=== PATIENT | male | born 1940 | race Caucasian/White ===

== ENCOUNTER 2016-08-26 06:33 | Day surgery (SDC) | payer MEDICARE, OTHER ==
[2016-08-23 08:53] LABS: HEMATOCRIT 40.8 % (42.0-54.0); MCH 30.9 pg (26.0-34.0); MCHC 31.9 g/dL (31.0-37.0); MCV 96.9 fL (80.0-100.0); MEAN PLATELET VOLUME 11.1 fL (7.4-10.4); RBC 4.21 10x6/uL (4.20-6.10); RDW 14.1 % (11.5-14.5); WBC 6.4 10x3/uL (4.8-10.8)
[2016-08-23 08:58] LABS: ANION GAP 11.5 mmol/L (8-16); CALCIUM 8.5 mg/dL (8.5-10.1); CARBON DIOXIDE 29.6 mmol/L (21.0-32.0); CREATININE - SERUM 1.7 mg/dL (0.6-1.3); POTASSIUM - SERUM 4.1 mmol/L (3.5-5.1)
--- NOTE | 2016-08-23 09:51 | HP ---
PATIENT: SATHISH MERRILL MEDICAL RECORD: [id number] ACCOUNT: [id number] LOCATION:DRE : 40 ADMISSION DATE: 08/26/16 HISTORY AND PHYSICAL EXAMINATION Preoperative History and Physical HISTORY OF PRESENT ILLNESS: Mr. Merrill is a 76-year-old male with chronic sinusitis. He is admitted for a left-sided sinus surgery. PAST MEDICAL HISTORY: Includes hypertension, coronary artery disease and prostate cancer. PAST SURGICAL HISTORY: Includes cardiac ablation in 2016, rotator cuff surgery in 2011 and prostate surgery in 2014. PHYSICAL EXAMINATION: GENERAL: He is alert and oriented. FACE: Normal and symmetric. EYES: Sclerae and conjunctivae are normal. EARS: Canals and TMs are normal. NOSE: No masses or polyps. ORAL CAVITY AND OROPHARYNX: Tongue protrudes to midline. Palate is normal. NECK: No masses or adenopathy. CHEST: Clear. CARDIOVASCULAR: Regular rate and rhythm, no murmur. DIAGNOSTIC DATA: CT, chronic left maxillary sinusitis and involvement of the ethmoid with occlusion of the left ostiomeatal complex as well. IMPRESSION: Left chronic maxillary sinusitis, refractory to medical management. PLAN: Left middle meatal antrostomy and anterior ethmoidectomy, also on the left. TRANSINT:[id number] Voice Confirmation ID: [id number] DOCUMENT ID: [id number] GABINO MOSHER MD at 0951 CC: [id number] DICTATION DATE: 08/22/16 1529 WILDLIFE AND GAME PROTECTOR: 08/22/16 1736 [id number] [place] [address]
[~2016-08-26] VITALS: Ht 185.4 cm; Wt 82.1 kg
[~2016-08-26 06:33] MED LIST: ASPIRIN EC81 MG PO; BUMEX 1 MG TAB1 MG PO; CAL/MAG/ZINC; COREG6.25 MG PO; COZAAR100 MG; ELIQUIS2.5 MG PO; FLAXSEED OIL1000 MG; FUROSEMIDE20 MG PO; HYDROCHLOROTH12.5 M1 PO; LANOXIN125 MCG PO; MULTI-DAY VITAM1 TAB; MULTI-DAY VITAM1 TAB PO; NIZORAL 2 % CRE15 GM; NORVASC5 MG PO; PACERONE200 MG PO; PLAVIX75 MG PO; POTASSIUM99 M1 PO; ZETIA10 MG PO; ZOCOR10 MG PO; ZYLOPRIM100 MG; ZYLOPRIM300 MG PO
[2016-08-26] MEDS ORDERED: LOVENOX80 MG/0.8 SC (09:24)
[2016-08-26 09:34] VITALS: BP 127/73; Ht 185.4 cm; Wt 82.1 kg
--- NOTE | 2016-08-26 17:59 | NUR ---
1445--IV DC'D, PT UP TO DRESS AT THIS TIME. DONNELL VILLASENOR 1500--DISCHARGE INSTRUCTIONS GIVEN, PT VERBALIZES UNDERSTANDING. PT OFF UNIT VIA WC. DONNELL VILLASENOR
--- NOTE | 2016-08-29 10:08 | OP ---
PATIENT NAME: SATHISH SUH MEDICAL RECORD: [id number] :40 LOCATION:DRE ADMISSION DATE: SURGEON: DONALD GILBERT MD DATE OF OPERATION: 08/26/2016 PREOPERATIVE DIAGNOSIS: left chronic maxillary sinusitis and ethmoid sinusitis. POSTOPERATIVE DIAGNOSIS: Left chronic maxillary sinusitis and ethmoid sinusitis. PROCEDURE: Left middle meatal antrostomy and left anterior ethmoidectomy. SURGEON: Donald Gilbert MD. ANESTHESIA: General orotracheal. BLOOD LOSS: Less than 2 cc. SPECIMENS: Tissue from the left middle meatus and cultures from the left maxillary sinus. PACKING: None. COMPLICATIONS: None. DISPOSITION: Recovery stable. DESCRIPTION OF PROCEDURE: He was brought to the operating room, placed in supine position, sedated and intubated by anesthesia. He had already been decongested with Afrin. Using a headlight and nasal speculum, both sides of the nose were examined. The left inferior turbinate, uncinate and base of the middle turbinate were injected with less than 1 cc of 1% lidocaine with 1:100,000 epinephrine and couple of Afrin pledgets were placed on both sides of the nose actually. Then, the patient was positioned, prepped and draped in the usual fashion for nasal surgery. The right pledgets were removed first. A 0-degree scope was used to examine the right side of the nose. The turbinates were normal. The middle meatus was opened. There was an accessory ostia that was clearly visible, there was no drainage. The maxillary sinus mucosa looked normal. Ethmoid bulla looked normal. There was no swelling or polyps. The nasal vault was normal. The nasopharynx, eustachian tube and orifices were all normal. The left side was addressed. All the Afrin pledgets were removed. A [place] elevator was used to outfracture the inferior turbinate. Middle meatus was examined. There were some thick tissue around the area of the ethmoid bulla. The middle turbinate was normal. The nasal vault and nasopharynx were normal. The middle turbinate was medialized with a freer. The uncinate was fractured anteriorly with the ball-tipped probe and a portion that was removed with the microdebrider and with a backbiter. The medius was identified with a curved olive tip suction and a backbiter was used to take down some of the tissue around there and then a large curved olive tip suction was inserted to evacuate some of the material from the maxillary sinus and cultures were taken. Some of tissue from around that area was sent for specimen as well. The ethmoid bulla was entered anteriorly with a 7-Citizen [place] suction pushing into the ethmoid bulla and then the pediatric straight and upbiting forceps were used to take down just the anterior ethmoid cavity. There was some minimal edema there, but really no purulence or sinusitis in the ethmoid sinuses. The large curved olive OPERATIVE REPORT [id number] SATHISH SUH L tip suction was used again to irrigate the maxillary sinus with 60 cc saline syringe, repeatedly irrigating it and the anterior ethmoids, a 30-degree scope was used to examine the sinus and the mucosa was relatively normal with minimal inflammation. The nasopharynx was suctioned. The right side was examined again, everything was clean. There was nearly no bleeding at that point. The patient was awakened, extubated and transported to recovery in good condition, no complications. TRANSINT:[id number] Voice Confirmation ID: [id number] DOCUMENT ID: [id number] DONALD GILBERT MD at 1008 CC: [id number] DICTATION DATE: 08/26/16 1229 BUILDING SURVEYOR: 08/26/16 190 [facility] 08/26/16 [facility] [address] [place] [address]
== END 2016-08-26 15:00 | disposition home or self-care (01) ==
LOC: D.OPS 06:33 → D.PAN 08:15 → D.OPS 10:15 → D.PAN 10:35 → D.OPS 15:00
PROVIDERS: Anesthesiology
DX: J32.0 Chronic maxillary sinusitis (principal); I10 Essential (primary) hypertension; I48.91 Unspecified atrial fibrillation; G47.30 Sleep apnea, unspecified; M19.90 Unspecified osteoarthritis, unspecified site

== ENCOUNTER 2016-08-29 01:38 | Outpatient (CLI) | payer MEDICARE, OTHER ==
[~2016-08-29] VITALS: Ht 185.4 cm; Wt 85.0 kg
[~2016-08-29 01:38] MED LIST changes: +LOVENOX80 MG/0.8 SC
[2016-08-29 02:24] LABS: BASOPHILS 0.1 % (0.0-2.0); EOSINOPHILS 1.2 % (0-7); HEMATOCRIT 43.1 % (42.0-54.0); HEMOGLOBIN 13.9 g/dL (13.5-17.5); IMMATURE GRANULOCYTES 0.7 % (0-5); LYMPHOCYTES 14.2 % (15-50); MCH 31.4 pg (26.0-34.0); MCHC 32.3 g/dL (31.0-37.0); MCV 97.3 fL (80.0-100.0); MEAN PLATELET VOLUME 10.9 fL (7.4-10.4); NEUTROPHILS 75.8 % (40-80); RBC 4.43 10x6/uL (4.20-6.10); RDW 14.3 % (11.5-14.5); WBC 10.2 10x3/uL (4.8-10.8)
[2016-08-29 02:26] LABS: PLATELET COUNT 189 10x3/uL (130-400)
[2016-08-29 02:31] LABS: INR 1.02 (0.85-1.17); PROTIME 13.2 SECONDS (11.6-15.0)
[2016-08-29 02:32] LABS: APTT 43.4 SECONDS (22.8-39.4)
--- NOTE | 2016-08-29 05:00 | NUR ---
REC'D TO ROOM 2223 PER W/C FROM ER DEPT A 76 Y/O W/M PER SERVICES DR. MOSHER WITH NOSEBLEED. ALLERGY TO IV CONTRAST DYE(IODINE). SALINE LOCK TO LEFT AC. CHECKED FOR PATENCY. IV CATHETER NOT IN VEIN IV REMOVED CATHETER SUCK IN SIDE OF TAPE. PT IS ALERT/ORIENTED X3. UP AD JOSE. ASSESSMENT PER ADMIT PACKET. PATIENT COUGHING UP BLOOD CLOTS ORALLY HAS NOSE PAD TO BOTH NARES TO CATCH DRIPPINGS GAUZE PAD PARTIALLY SOAKED.
[2016-08-29 05:21] VITALS: BP 142/91; Ht 185.4 cm; Wt 85.0 kg
--- NOTE | 2016-08-29 05:35 | NUR ---
NOSE PAD CHANGED NEW 4X4 GAUZE WITH PAPER TAPE CHANGED. PATIENT SITTING UPRIGHT IN CHAIR AT BEDSIDE.
--- NOTE | 2016-08-29 06:50 | NUR ---
PERMITS SIGNED AND WITNESSED PLACED ON CHART DR. MOSHER HERE TO SEE NASIM.
--- NOTE | 2016-08-29 07:15 | NUR ---
SALINE LOCK STARTED RT HAND 22G ANGIOCATH. PT SENT TO SURGERY PER BED. MEDS SENT WITH PATENT AND IV FLUIDS EKG DONE PREOP MEDS WILL BE GIVEN IN OR.
--- NOTE | 2016-08-29 08:19 | NUR ---
CARE TRANSFERED TO MARICHUY VILLASENOR AT 0888
[2016-08-29 08:50] VITALS: BP 147/86
--- NOTE | 2016-08-29 08:50 | NUR ---
RECEIVED PATIENT BACK TO HIS ROOM VIA BED FROM THE RECOVERY ROOM. PATIENT IS AWAKE, ALERT, AND ORIENTED X4. RATES PAIN LEVEL A "3" ON A 0-[address] NAS[address]ESSING IN PLACE WITHOUT ANY BLEEDING NOTED AT PRESENT TIME. PATIENT REQUESTS SOMETHING TO DRINK. ICE WATER GIVEN TO PATIENT. TEMP 97.6 AND VSS. CALL LIGHT IN PATIENT'S REACH. WILL MONITOR.
--- NOTE | 2016-08-29 09:57 | NUR ---
SCHEDULED MORNING MEDICATIONS GIVEN TO PATIENT. PATIENT TOLERATED WELL WITH SPRITE. NO BLEEDING NOTED TO PATIENT'S NASAL DRESSING. VANILLA PUDDING AND APPLESAUCE GIVEN TO PATIENT PER REQUEST. CALL LIGHT IN PATIENT'S REACH. WILL MONITOR PATIENT.
--- NOTE | 2016-08-29 10:08 | OP ---
PATIENT NAME: SATHISH MERRILL MEDICAL RECORD: [id number] :40 LOCATION:D.MS [id number] ADMISSION DATE:08/29/16 SURGEON: DONALD MOSHER MD DATE OF OPERATION: 08/29/2016 PREOPERATIVE DIAGNOSIS: Left-sided epistaxis. POSTOPERATIVE DIAGNOSIS: Left-sided epistaxis. PROCEDURE: Endoscopic control of epistaxis. SURGEON: Donald Mosher MD. ANESTHESIA: General orotracheal. BLOOD LOSS: Less than 5 cc. SPECIMENS: None. PACKING: Fibrillar and Merocel. COMPLICATIONS: None. DISPOSITION: Recovery, stable. DESCRIPTION OF PROCEDURE: Mr. Merrill was brought to the operating room and placed in supine position. He was sedated and intubated by anesthesia. The table was turned 90 degrees. A head drape was applied and he was positioned for a nasal endoscopy. Right side of the nose was quickly examined with 0-degree scope. There was no blood or clot. The left side was examined. There was a Merocel packing that was removed. All blood was suctioned from the nose using a 0-degree scope. The middle meatus was suctioned of clot as was the nasopharynx. All the bleeding was coming from the previous surgical site of the uncinate and lateral aspect of the middle turbinate and ethmoid cavity area. Straight suction cautery was used to suction out the blood. A couple areas that were bleeding more significantly on the lateral aspect of the middle turbinate and just at the inferior portion of the ethmoidectomy were cauterized that stopped most of the bleeding, then this was suctioned out. Afrin pledget was placed using a smaller straight ____ to suction. All the blood was cleaned up. A curved olive tip suction was inserted into the maxillary sinus and suctioned some blood clot out of the maxillary sinus and then the area was carefully examined. There was just some minor oozing consistent with his anticoagulated status and the previous surgery really nothing significant. Fibrillar was then used to pack all along the ethmoid cavity, the lateral aspect of the middle turbinate and around the maxillary ostia. The middle meatus was completely packed with fibrillar all along the lateral aspect of the middle turbinate completely stopped all the bleeding, it was completely dry, but he still had some tiny areas in the nose that were bleeding from his previous packing. A Merocel pack was placed along the floor of the nose and some saline was used to expand that. The pharynx was suctioned. I feel it was completely clean and dry, there was no bleeding at all. An 18-[place] NG tube was placed through the mouth into the stomach a couple of times to evacuate any stomach contents, there was really almost none, just a tiny amount of old blood in the stomach, then he was awakened, extubated, and transported to recovery in good condition. No complications. OPERATIVE REPORT [id number] SATHISH MERRILL TRANSINT:[id number] Voice Confirmation ID: [id number] DOCUMENT ID: [id number] DONALD MOSHER MD at 1008 CC: [id number] DICTATION DATE: 08/29/16817 STRIPER MACHINE: 08/29/16 0848 ADM IN [facility] [address] [place] [address]
[2016-08-29] MEDS ORDERED: KEFLEX500 MG PO (15:13)
--- NOTE | 2016-08-29 15:40 | NUR ---
PATIENT TO BE DISCHARGED HOME. AND A FRIEND AT PATIENT'S BEDSIDE. PATIENT'S SALINE LOCK DC'D WITH CATHETER TIP STILL INTACT. PATIENT TOLERATED WELL. DISCHARGE INSTRUCTIONS VERBALIZED TO PATIENT AND HIS . PATIENT VERBALIZED UNDERSTANDING AND SIGNED DISCHARGE INSTRUCTIONS. KEFLEX PRESCRIPTION GIVEN TO PATIENT. PATIENT TO GET DRESSED. CALL LIGHT IN REACH.
--- NOTE | 2016-08-29 15:52 | NUR ---
PATIENT TRANSFERRED TO THE CAR VIA WHEELCHAIR. WITH PATIENT.
== END 2016-08-29 15:52 | disposition home or self-care (01) ==
LOC: OBSVTIME → D.OPS 01:38 → D.ER 01:38 → D.MS 03:23 → OBSVTIME 03:23 → D.ER 04:30 → EDSTATUS 07:00 → D.OPS 15:52 → D.MS 15:52
PROVIDERS: Emergency Medicine
DX: R04.0 Epistaxis (principal)